=== PATIENT | male | born 1955 | race Caucasian/White ===

== ENCOUNTER 2017-09-20 10:47 | Emergency (ER) | payer OTHER ==
[~2017-09-20] VITALS: Ht 193 cm; Wt 81.7 kg
== END 2017-09-20 12:25 | disposition home or self-care (01) ==
LOC: ER 10:47
DX: T83.098A Other mechanical complication of other urinary catheter, initial encounter (principal); Z85.51 Personal history of malignant neoplasm of bladder
CPT/HCPCS: 51702; 99283